=== PATIENT | female | born 1970 | race Two or more races ===

== ENCOUNTER 2024-08-16 11:22 | Emergency (ER) | payer MEDICAID, OTHER ==
[~2024-08-16] VITALS: Ht 165.1 cm; Wt 109.3 kg
[2024-08-16 12:16] VITALS: BP 155/83; PULSE 73; RESP 16; TEMP 98.8; O2SAT 97
[2024-08-16] MEDS ORDERED: PRED20TA2 PO (12:58)
[2024-08-16] MEDS: diphenhdrAMINE HCL 50 MG/1 ML VL IM ONE (13:05)
[2024-08-16] MEDS: DexAMETHasone SOD PHOS 10MG/1ML VIAL INJ IM ONE (13:05)
== END 2024-08-16 13:07 | disposition home or self-care (01) ==
LOC: ER 11:22
DX: L50.9 Urticaria, unspecified (principal); I10 Essential (primary) hypertension; Z88.6 Allergy status to analgesic agent; Z79.899 Other long term (current) drug therapy
CPT/HCPCS: 82962; 93005; 96372; 99284; J1100; J1200